=== PATIENT | female | born 1960 | race Caucasian/White ===

== ENCOUNTER 2020-11-30 12:42 | Outpatient (CLI) | payer OTHER, SELFPAY ==
--- NOTE | 2020-11-30 13:14 | MR_ITS ---
WS: [id number] MRI LEFT SHOULDER NONCONTRAST TECHNIQUE: Sagittal T2, coronal T1, T2 and proton density imaging. Axial gradient PDE imaging. CLINICAL INFORMATION: LEFT SHOULDER INJURY COMPARISON: None. FINDINGS: Normal anatomic alignment. Normal bone marrow signal in the humerus and glenoid. Mild widening of the AC joint with joint effusion. Small amount of subacromial/subdeltoid fluid. Mild narrowing of the watkins bacromial space. Normal distal supraspinatus. Normal infraspinatus. Normal teres minor. Subscapularis is normal in appearance. Normal biceps tendon in the bicipital groove. Glenoid labrum appears grossly normal. Normal intra-art icular biceps tendon. MR/MR shoulder LT wo con* [id number] IMPRESSION: 1. Mild widening of the AC joint with joint effusion. Recommend correlation fo r AC joint injury. Subacromial/subdeltoid fluid. Recommend radiographs of the r ight shoulder to better assess AC joint alignment. 2. Mild narrowing of the subacromial space with mild chronic thinning of the d istal supraspinatus. Rotator cuff is intact. 3. Normal biceps tendon within the bicipital groove. Normal intra-articular bi ceps tendon. 4. Glenoid labrum appears grossly normal. 5. Normal bone marrow signal in the humerus and glenoid.
== END 2020-11-30 12:43 | disposition home or self-care (01) ==
PROVIDERS: Visit Provider Nurse Practitioner Family
DX: S49.92XA Unspecified injury of left shoulder and upper arm, initial encounter (principal); M25.412 Effusion, left shoulder; X58.XXXA Exposure to other specified factors, initial encounter
CPT/HCPCS: 73221